=== PATIENT | male | born 1975 | race Caucasian/White ===

== ENCOUNTER 2018-04-16 12:52 | Emergency (ER) | payer SELFPAY ==
[2018-04-16] MEDS ORDERED: IBUPROFEN 600 MG TABLET PO ONE (13:30)
[2018-04-16] MEDS ORDERED: BACITRACIN ZINC OINTMENT 15 GM TP ONE (13:30)
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
[2018-04-16 14:06] VITALS: BP 136/100
== END 2018-04-16 14:04 | disposition home or self-care (01) ==
LOC: ER 12:52
DX: T23.342A Burn of third degree of multiple left fingers (nail), including thumb, initial encounter (principal); X12.XXXA Contact with other hot fluids, initial encounter; Y93.89 Activity, other specified; F17.200 Nicotine dependence, unspecified, uncomplicated; I10 Essential (primary) hypertension
CPT/HCPCS: 99283; J3490